=== PATIENT | male | born 1985 | race Caucasian/White ===

== ENCOUNTER → 2017-03-31 | Outpatient (CLI) | payer BC ==
[2017-03-31 07:13] LABS: ALT/SGPT 95 U/L (12-78); AST/SGOT 42 U/L (15-37)
== END ==
LOC: M LAB 06:21
PROVIDERS: ATTEND Internal Medicine Rheumatology
DX: R94.5 Abnormal results of liver function studies (principal)

== ENCOUNTER → 2017-09-29 | Outpatient (CLI) | payer BC ==
[2017-09-29 07:39] LABS: BASO # 0.1 10^3/uL (0.0-0.2); BASO % 1.2 % (0.0-1.0); EOS # 0.1 10^3/uL (0.0-0.50); IMMATURE GRANULOCYTE % 0.2 % (0-0); LYMPH # 1.6 10^3/uL (1.5-4.5); MEAN CORPUSCULAR HEMOGLOBIN 35.3 pg (27.0-33.0); MEAN CORPUSCULAR HGB CONC 35.4 g/dl (32.0-36.5); MEAN CORPUSCULAR VOLUME 99.8 fl (80.0-96.0); MONO # 0.8 10^3/uL (0.0-0.8); MONO % 15.9 % (0.0-5.0); NEUTROPHILS # 2.4 10^3/uL (1.8-7.7); NEUTROPHILS % 48.7 % (36.0-66.0); PLATELET COUNT, AUTOMATED 244 10^3/uL (150-450); RED CELL DISTRIBUTION WIDTH 11.1 % (11.5-14.5); WHITE BLOOD COUNT 4.9 10^3/uL (4.0-10.0)
[2017-09-29 07:57] LABS: ALT/SGPT 59 U/L (12-78); AST/SGOT 57 U/L (7-37)
== END ==
LOC: M LAB 06:46
PROVIDERS: ATTEND Physician Assistant Medical
DX: Z51.81 Encounter for therapeutic drug level monitoring (principal); Z79.899 Other long term (current) drug therapy; R94.5 Abnormal results of liver function studies

== ENCOUNTER → 2017-09-29 | Outpatient (CLI) | payer BC ==
[2017-09-29 08:08] LABS: ALBUMIN 3.8 GM/DL (3.2-5.2); ALBUMIN/GLOBULIN RATIO 1.36 (1.00-1.93); ALKALINE PHOSPHATASE 99 U/L (45-117); ALT/SGPT 60 U/L (12-78); ANION GAP 8 MEQ/L (8-16); AST/SGOT 57 U/L (7-37); BILIRUBIN,TOTAL 0.8 MG/DL (0.2-1.0); BLOOD UREA NITROGEN 15 MG/DL (7-18); CARBON DIOXIDE LEVEL 31 MEQ/L (21-32); CHLORIDE LEVEL 98 MEQ/L (98-107); CHOLESTEROL LEVEL 219 MG/DL (<200); CREATININE FOR GFR 0.87 MG/DL (0.70-1.30); GLOMERULAR FILTRATION RATE > 60.0 (>60); GLUCOSE, FASTING 94 MG/DL (70-105); POTASSIUM SERUM 3.8 MEQ/L (3.5-5.1); SODIUM LEVEL 137 MEQ/L (136-145); TOTAL PROTEIN 6.6 GM/DL (6.4-8.2); TRIGLYCERIDES LEVEL 152 MG/DL (<150)
== END ==
LOC: M LAB 06:47
PROVIDERS: ATTEND Family Medicine
DX: I10 Essential (primary) hypertension (principal)

== ENCOUNTER 2017-10-27 13:12 | Outpatient (CLI) | payer BC ==
[~2017-10-27 13:12] MED LIST: ALEV220C2 PO; ATEN50TA9 PO; INFL10VL IV
[2017-10-27] MEDS ORDERED: ACETAMINOPHEN TAB 650MG DOSE (2X325MG) PO ONE (13:30)
[2017-10-27] MEDS ORDERED: NS 1,000 ML IV SCH (14:00)
[2017-10-27] MEDS ORDERED: diphenhydrAMINE 25 MG CAP PO ONE (14:00)
[2017-10-27] MEDS ORDERED: inFLIXimab INJECTION 600 MG in NS 190 ML IV ONE (14:00)
== END 2017-10-27 16:30 | disposition home or self-care (01) ==
LOC: M INFU 13:12
PROVIDERS: ATTEND Internal Medicine
DX: L40.50 Arthropathic psoriasis, unspecified (principal); F17.210 Nicotine dependence, cigarettes, uncomplicated; Z91.040 Latex allergy status; Z79.899 Other long term (current) drug therapy
CPT/HCPCS: 96413; 96415; J1745

== ENCOUNTER 2017-11-21 09:00 | Inpatient (IN) | payer BC ==
[2017-11-21] MEDS: PANTOPRAZOLE 40MG INJ (PROTONIX) (C9113) IV (09:00)
[2017-11-21] MEDS: NS 1,000 ML IV ×2 (09:30→13:57)
[2017-11-21] MEDS: ONDANSETRON 4MG/2ML VIAL (J2405) IV (09:30)
[2017-11-21 10:04] LABS: BASO # 0.1 10^3/uL (0.0-0.2); BASO % 0.3 % (0.0-1.0); EOS % 0.1 % (0.0-3.0); HEMATOCRIT 46.1 % (42.0-52.0); IMMATURE GRANULOCYTE # 0.1 10^3/uL (0-0); IMMATURE GRANULOCYTE % 0.3 % (0-0); LYMPH # 0.7 10^3/uL (1.5-4.5); LYMPH % 5.1 % (24.0-44.0); MEAN CORPUSCULAR HEMOGLOBIN 35.1 pg (27.0-33.0); MEAN CORPUSCULAR VOLUME 95.1 fl (80.0-96.0); MONO # 1.2 10^3/uL (0.0-0.8); MONO % 8.1 % (0.0-5.0); NEUTROPHILS # 12.6 10^3/uL (1.8-7.7); NEUTROPHILS % 86.1 % (36.0-66.0); PLATELET COUNT, AUTOMATED 256 10^3/uL (150-450); RED BLOOD COUNT 4.85 10^6/uL (4.30-6.10); WHITE BLOOD COUNT 14.6 10^3/uL (4.0-10.0)
[2017-11-21 10:09] LABS: ADD MANUAL DIFFER NO; DIFF SLIDE NUMBER 160; MEAN CORPUSCULAR HGB CONC 36.9 g/dl (32.0-36.5)
[2017-11-21 10:18] LABS: ALBUMIN/GLOBULIN RATIO 1.18 (1.00-1.93); ALKALINE PHOSPHATASE 132 U/L (45-117); ALT/SGPT 74 U/L (12-78); AMYLASE 187 U/L (25-115); ANION GAP 10 MEQ/L (8-16); AST/SGOT 83 U/L (7-37); BILIRUBIN,DIRECT 0.6 MG/DL (0.0-0.2); BILIRUBIN,TOTAL 2.9 MG/DL (0.2-1.0); BLOOD UREA NITROGEN 27 MG/DL (7-18); CALCIUM LEVEL 8.9 MG/DL (8.5-10.1); CARBON DIOXIDE LEVEL 29 MEQ/L (21-32); CHLORIDE LEVEL 94 MEQ/L (98-107); CREATININE FOR GFR 0.94 MG/DL (0.70-1.30); GLOMERULAR FILTRATION RATE > 60.0 (>60); GLUCOSE, FASTING 127 MG/DL (70-105); LIPASE 1900 U/L (73-393); POTASSIUM SERUM 3.5 MEQ/L (3.5-5.1); SODIUM LEVEL 133 MEQ/L (136-145); TOTAL PROTEIN 7.4 GM/DL (6.4-8.2)
[2017-11-21 10:22] LABS: KETONE, URINE AUTO RFX NEGATIVE (NEGATIVE); LEUKOCYTE ESTERASE UR AUTO RFX NEGATIVE (NEGATIVE); MUCUS, URINE RFX SMALL (NEGATIVE); NITRITE, URINE AUTO RFX NEGATIVE (NEGATIVE); RBC, URINE AUTO RFX 1 /HPF (0-3); SPECIFIC GRAVITY UR AUTO RFX 1.029 (1.002-1.035); SQUAM EPITHELIAL CELL UR AURFX 0 /HPF (0-6); WBC, URINE AUTO RFX 1 /HPF (0-3)
[2017-11-21] MEDS ORDERED: ISOVUE-370 76% 100ML VIAL (Q9967) As Ordered (10:25)
[2017-11-21 13:05] LABS: INR 0.89; PROTHROMBIN TIME 12.1 SECONDS (12.4-14.5)
[2017-11-21 13:06] LABS: LDH LACTATE DEHYDROGENASE 203 U/L (87-241)
[2017-11-21 13:06] LABS: ETHYL ALCOHOL (ETHANOL) < 0.003 % (0.000-0.010)
[2017-11-21] MEDS ORDERED: ONDANSETRON 4MG/2ML VIAL (J2405) IV (13:30)
[2017-11-21] MEDS: MEROPENEM INJ 1 GM in APPROPRIATE DILUENT 1 EA IV ×2 (13:58→22:06)
[2017-11-21] MEDS ORDERED: MORPHINE 2 MG/ML 1ML SYRINGE IV (14:15)
[2017-11-21] MEDS: KCL 20MEQ in NS 1000ML 1,000 ML IV ×3 (16:02→23:00)
[2017-11-21] MEDS: NICOTINE 14 MG/24 HR TRANSDERMAL TD (18:42)
[2017-11-21 19:35] LABS: ANION GAP 5 MEQ/L (8-16); BLOOD UREA NITROGEN 23 MG/DL (7-18); CALCIUM LEVEL 7.9 MG/DL (8.5-10.1); CARBON DIOXIDE LEVEL 31 MEQ/L (21-32); CHLORIDE LEVEL 101 MEQ/L (98-107); CREATININE FOR GFR 0.79 MG/DL (0.70-1.30); GLOMERULAR FILTRATION RATE > 60.0 (>60); GLUCOSE, FASTING 98 MG/DL (70-105); MAGNESIUM LEVEL 1.9 MG/DL (1.8-2.4); POTASSIUM SERUM 3.3 MEQ/L (3.5-5.1); SODIUM LEVEL 137 MEQ/L (136-145)
[2017-11-21] MEDS: SENOKOT S TAB PO (22:04)
[2017-11-21] MEDS: HEPARIN SOD (PORCINE) 5000 UNITS/ML VIAL SQ (22:06)
[2017-11-21] MEDS: ATENOLOL 50 MG TAB PO (22:45)
[2017-11-21] MEDS: KETOROLAC 30 MG/ML VIAL (J1885) IV (22:45)
[2017-11-22] MEDS: KCL 20MEQ in NS 1000ML 1,000 ML IV ×3 (03:00→11:35)
[2017-11-22] MEDS: MEROPENEM INJ 1 GM in APPROPRIATE DILUENT 1 EA IV ×3 (06:04→21:36)
[2017-11-22 07:05] LABS: BASO % 0.6 % (0.0-1.0); EOS # 0.3 10^3/uL (0.0-0.50); EOS % 5.2 % (0.0-3.0); HEMATOCRIT 34.1 % (42.0-52.0); IMMATURE GRANULOCYTE % 0.4 % (0-0); LYMPH # 0.9 10^3/uL (1.5-4.5); LYMPH % 18.8 % (24.0-44.0); MEAN CORPUSCULAR HEMOGLOBIN 35.5 pg (27.0-33.0); MEAN CORPUSCULAR HGB CONC 35.2 g/dl (32.0-36.5); MEAN CORPUSCULAR VOLUME 100.9 fl (80.0-96.0); MONO # 0.5 10^3/uL (0.0-0.8); MONO % 10.9 % (0.0-5.0); NEUTROPHILS # 3.1 10^3/uL (1.8-7.7); NEUTROPHILS % 64.1 % (36.0-66.0); RED BLOOD COUNT 3.38 10^6/uL (4.30-6.10); RED CELL DISTRIBUTION WIDTH 11.5 % (11.5-14.5); WHITE BLOOD COUNT 4.8 10^3/uL (4.0-10.0)
[2017-11-22 07:11] LABS: PLATELET COUNT, AUTOMATED 147 10^3/uL (150-450)
[2017-11-22 07:31] LABS: ALBUMIN 2.6 GM/DL (3.2-5.2); ALKALINE PHOSPHATASE 93 U/L (45-117); ALT/SGPT 40 U/L (12-78); ANION GAP 8 MEQ/L (8-16); AST/SGOT 57 U/L (7-37); BLOOD UREA NITROGEN 25 MG/DL (7-18); CALCIUM LEVEL 7.8 MG/DL (8.5-10.1); CARBON DIOXIDE LEVEL 26 MEQ/L (21-32); CHLORIDE LEVEL 107 MEQ/L (98-107); CREATININE FOR GFR 0.72 MG/DL (0.70-1.30); GLOMERULAR FILTRATION RATE > 60.0 (>60); GLUCOSE, FASTING 79 MG/DL (70-105); LIPASE 2540 U/L (73-393); MAGNESIUM LEVEL 2.1 MG/DL (1.8-2.4); POTASSIUM SERUM 3.9 MEQ/L (3.5-5.1); SODIUM LEVEL 141 MEQ/L (136-145); TOTAL PROTEIN 5.5 GM/DL (6.4-8.2)
[2017-11-22] MEDS: SENOKOT S TAB PO ×2 (08:28→20:19)
[2017-11-22] MEDS: HEPARIN SOD (PORCINE) 5000 UNITS/ML VIAL SQ ×2 (08:28→20:48)
[2017-11-22] MEDS: PANTOPRAZOLE 40MG INJ (PROTONIX) (C9113) IV (08:28)
[2017-11-22 12:50] LABS: CHOLESTEROL LEVEL 172 MG/DL (<200); CHOLESTEROL RISK RATIO 3.583 (<5); HDL CHOLESTEROL 48 MG/DL (>40); LDL CHOLESTEROL 69.8 MG/DL (<100); NON-HDL-C 124 MG/DL; TRIGLYCERIDES LEVEL 271 MG/DL (<150)
[2017-11-22] MEDS: NICOTINE 14 MG/24 HR TRANSDERMAL TD (20:48)
[2017-11-22] MEDS: ATENOLOL 50 MG TAB PO (20:49)
[2017-11-23] MEDS: MEROPENEM INJ 1 GM in APPROPRIATE DILUENT 1 EA IV ×2 (05:41→14:25)
[2017-11-23 07:42] LABS: BASO % 0.6 % (0.0-1.0); EOS # 0.4 10^3/uL (0.0-0.50); HEMATOCRIT 38.4 % (42.0-52.0); HEMOGLOBIN 13.3 g/dl (14.0-18.0); IMMATURE GRANULOCYTE % 0.4 % (0-0); LYMPH # 1.1 10^3/uL (1.5-4.5); LYMPH % 19.9 % (24.0-44.0); MEAN CORPUSCULAR HEMOGLOBIN 34.9 pg (27.0-33.0); MEAN CORPUSCULAR HGB CONC 34.6 g/dl (32.0-36.5); MEAN CORPUSCULAR VOLUME 100.8 fl (80.0-96.0); MONO # 0.6 10^3/uL (0.0-0.8); MONO % 11.6 % (0.0-5.0); NEUTROPHILS # 3.3 10^3/uL (1.8-7.7); NEUTROPHILS % 60.5 % (36.0-66.0); PLATELET COUNT, AUTOMATED 156 10^3/uL (150-450); RED BLOOD COUNT 3.81 10^6/uL (4.30-6.10); RED CELL DISTRIBUTION WIDTH 11.1 % (11.5-14.5); WHITE BLOOD COUNT 5.4 10^3/uL (4.0-10.0)
[2017-11-23 08:06] LABS: ALBUMIN 2.8 GM/DL (3.2-5.2); ALBUMIN/GLOBULIN RATIO 0.88 (1.00-1.93); ALKALINE PHOSPHATASE 87 U/L (45-117); ALT/SGPT 38 U/L (12-78); ANION GAP 7 MEQ/L (8-16); AST/SGOT 52 U/L (7-37); BILIRUBIN,TOTAL 1.3 MG/DL (0.2-1.0); BLOOD UREA NITROGEN 12 MG/DL (7-18); CALCIUM LEVEL 8.7 MG/DL (8.5-10.1); CARBON DIOXIDE LEVEL 30 MEQ/L (21-32); CHLORIDE LEVEL 102 MEQ/L (98-107); CREATININE FOR GFR 0.61 MG/DL (0.70-1.30); GLOMERULAR FILTRATION RATE > 60.0 (>60); GLUCOSE, FASTING 101 MG/DL (70-105); LIPASE 3129 U/L (73-393); MAGNESIUM LEVEL 2.3 MG/DL (1.8-2.4); POTASSIUM SERUM 3.6 MEQ/L (3.5-5.1); SODIUM LEVEL 139 MEQ/L (136-145)
[2017-11-23] MEDS: HEPARIN SOD (PORCINE) 5000 UNITS/ML VIAL SQ ×2 (08:47→21:00)
[2017-11-23] MEDS: SENOKOT S TAB PO ×3 (08:47→21:01)
[2017-11-23] MEDS: PANTOPRAZOLE 40MG INJ (PROTONIX) (C9113) IV (08:47)
[2017-11-23] MEDS: CIPROFLOXACIN 500 MG TAB PO (17:34)
[2017-11-23] MEDS: NICOTINE 14 MG/24 HR TRANSDERMAL TD (21:01)
[2017-11-23] MEDS: metroNIDAZOLE (FLAGYL) 500 MG TAB PO (21:01)
[2017-11-23] MEDS: ATENOLOL 50 MG TAB PO (21:01)
[2017-11-24] MEDS: CIPROFLOXACIN 500 MG TAB PO (05:51)
[2017-11-24] MEDS: metroNIDAZOLE (FLAGYL) 500 MG TAB PO (05:51)
[2017-11-24 06:48] LABS: BASO % 0.9 % (0.0-1.0); EOS # 0.3 10^3/uL (0.0-0.50); EOS % 6.9 % (0.0-3.0); HEMOGLOBIN 13.1 g/dl (14.0-18.0); IMMATURE GRANULOCYTE % 0.2 % (0-0); LYMPH % 20.8 % (24.0-44.0); MEAN CORPUSCULAR HEMOGLOBIN 34.8 pg (27.0-33.0); MEAN CORPUSCULAR HGB CONC 35.4 g/dl (32.0-36.5); MEAN CORPUSCULAR VOLUME 98.4 fl (80.0-96.0); MONO # 0.6 10^3/uL (0.0-0.8); MONO % 12.4 % (0.0-5.0); NEUTROPHILS # 2.8 10^3/uL (1.8-7.7); NEUTROPHILS % 58.8 % (36.0-66.0); PLATELET COUNT, AUTOMATED 199 10^3/uL (150-450); RED BLOOD COUNT 3.76 10^6/uL (4.30-6.10); RED CELL DISTRIBUTION WIDTH 10.8 % (11.5-14.5); WHITE BLOOD COUNT 4.7 10^3/uL (4.0-10.0)
[2017-11-24 07:06] LABS: ALBUMIN 2.7 GM/DL (3.2-5.2); ALBUMIN/GLOBULIN RATIO 0.77 (1.00-1.93); ALKALINE PHOSPHATASE 87 U/L (45-117); ALT/SGPT 45 U/L (12-78); ANION GAP 5 MEQ/L (8-16); AST/SGOT 68 U/L (7-37); BILIRUBIN,TOTAL 0.4 MG/DL (0.2-1.0); BLOOD UREA NITROGEN 7 MG/DL (7-18); CALCIUM LEVEL 8.4 MG/DL (8.5-10.1); CARBON DIOXIDE LEVEL 32 MEQ/L (21-32); CHLORIDE LEVEL 101 MEQ/L (98-107); CREATININE FOR GFR 0.56 MG/DL (0.70-1.30); GLOMERULAR FILTRATION RATE > 60.0 (>60); GLUCOSE, FASTING 112 MG/DL (70-105); LIPASE 2963 U/L (73-393); MAGNESIUM LEVEL 2.2 MG/DL (1.8-2.4); POTASSIUM SERUM 3.5 MEQ/L (3.5-5.1); SODIUM LEVEL 138 MEQ/L (136-145); TOTAL PROTEIN 6.2 GM/DL (6.4-8.2)
[2017-11-24] MEDS: SENOKOT S TAB PO (09:00)
[2017-11-24] MEDS: HEPARIN SOD (PORCINE) 5000 UNITS/ML VIAL SQ (09:00)
[2017-11-24] MEDS: PANTOPRAZOLE 40MG INJ (PROTONIX) (C9113) IV (09:07)
== END 2017-11-24 11:45 | disposition home or self-care (01) | DRG 282 ==
LOC: M MS4PR 11-22 11:30 → M ED 09:00 → M ED INP 14:09
DX: K85.90 Acute pancreatitis without necrosis or infection, unspecified (principal); L40.50 Arthropathic psoriasis, unspecified; I10 Essential (primary) hypertension; A09 Infectious gastroenteritis and colitis, unspecified; F17.210 Nicotine dependence, cigarettes, uncomplicated; Z91.040 Latex allergy status; Z79.899 Other long term (current) drug therapy

== ENCOUNTER → 2018-01-05 | Outpatient (CLI) | payer BC ==
[2018-01-05 07:34] LABS: ALBUMIN 4.2 GM/DL (3.2-5.2); ALBUMIN/GLOBULIN RATIO 1.45 (1.00-1.93); ALKALINE PHOSPHATASE 83 U/L (45-117); ALT/SGPT 28 U/L (12-78); AST/SGOT 28 U/L (7-37); BILIRUBIN,DIRECT 0.2 MG/DL (0.0-0.2); BILIRUBIN,TOTAL 0.7 MG/DL (0.2-1.0); TOTAL PROTEIN 7.1 GM/DL (6.4-8.2); TRIGLYCERIDES LEVEL 167 MG/DL (<150)
[2018-01-09 00:06] LABS: ANTINUCLEAR ANTIBODIES DIRECT Negative (Negative); IgG SUBCLASS 4(ONLY) 25 mg/dL (2-96)
== END ==
LOC: M LAB 06:07
DX: R93.3 Abnormal findings on diagnostic imaging of other parts of digestive tract (principal); K85.90 Acute pancreatitis without necrosis or infection, unspecified
CPT/HCPCS: 84478

== ENCOUNTER → 2018-01-20 | Outpatient (CLI) | payer BC ==
[2018-01-20 14:14] LABS: BASO % 0.3 % (0.0-1.0); EOS % 0.1 % (0.0-3.0); HEMATOCRIT 34.8 % (42.0-52.0); HEMOGLOBIN 12.5 g/dl (14.0-18.0); IMMATURE GRANULOCYTE % 0.5 % (0-3.0); LYMPH # 0.6 10^3/uL (1.5-4.5); LYMPH % 8.6 % (24.0-44.0); MEAN CORPUSCULAR HEMOGLOBIN 33.1 pg (27.0-33.0); MEAN CORPUSCULAR HGB CONC 35.9 g/dl (32.0-36.5); MEAN CORPUSCULAR VOLUME 92.1 fl (80.0-96.0); MONO # 1.1 10^3/uL (0.0-0.8); MONO % 15.1 % (0.0-5.0); NEUTROPHILS # 5.5 10^3/uL (1.8-7.7); NEUTROPHILS % 75.4 % (36.0-66.0); PLATELET COUNT, AUTOMATED 215 10^3/uL (150-450); RED BLOOD COUNT 3.78 10^6/uL (4.30-6.10); RED CELL DISTRIBUTION WIDTH 10.6 % (11.5-14.5); WHITE BLOOD COUNT 7.3 10^3/uL (4.0-10.0)
[2018-01-20 14:30] LABS: ALBUMIN 3.3 GM/DL (3.2-5.2); ALBUMIN/GLOBULIN RATIO 0.87 (1.00-1.93); ALKALINE PHOSPHATASE 85 U/L (45-117); ALT/SGPT 26 U/L (12-78); ANION GAP 12 MEQ/L (8-16); AST/SGOT 38 U/L (7-37); BILIRUBIN,TOTAL 1.1 MG/DL (0.2-1.0); BLOOD UREA NITROGEN 16 MG/DL (7-18); CALCIUM LEVEL 8.7 MG/DL (8.5-10.1); CARBON DIOXIDE LEVEL 30 MEQ/L (21-32); CHLORIDE LEVEL 86 MEQ/L (98-107); CREATININE FOR GFR 0.97 MG/DL (0.70-1.30); GLOMERULAR FILTRATION RATE > 60.0 (>60); GLUCOSE, FASTING 99 MG/DL (70-100); POTASSIUM SERUM 3.2 MEQ/L (3.5-5.1); SODIUM LEVEL 128 MEQ/L (136-145); TOTAL PROTEIN 7.1 GM/DL (6.4-8.2)
== END ==
LOC: M WUC 10:12
DX: R50.9 Fever, unspecified (principal); R05 Cough
CPT/HCPCS: 80053

== ENCOUNTER 2018-01-23 11:21 | Emergency (ER) | payer BC ==
[2018-01-23 14:18] LABS: KETONE, URINE AUTO RFX TRACE mg/dL (NEGATIVE); MUCUS, URINE RFX SMALL (NEGATIVE); NITRITE, URINE AUTO RFX NEGATIVE (NEGATIVE); RBC, URINE AUTO RFX 4 /HPF (0-3); SPECIFIC GRAVITY UR AUTO RFX 1.035 (1.002-1.035); SQUAM EPITHELIAL CELL UR AURFX 0 /HPF (0-6)
[2018-01-23 14:19] LABS: LEUKOCYTE ESTERASE UR AUTO RFX TRACE (NEGATIVE); WBC, URINE AUTO RFX 18 /HPF (0-3)
[2018-01-23 14:22] LABS: BASO % 0.3 % (0.0-1.0); EOS # 0.1 10^3/uL (0.0-0.50); EOS % 1.5 % (0.0-3.0); HEMATOCRIT 36.2 % (42.0-52.0); IMMATURE GRANULOCYTE % 0.5 % (0-3.0); LYMPH # 0.6 10^3/uL (1.5-4.5); MEAN CORPUSCULAR HEMOGLOBIN 33.2 pg (27.0-33.0); MEAN CORPUSCULAR HGB CONC 35.9 g/dl (32.0-36.5); MEAN CORPUSCULAR VOLUME 92.3 fl (80.0-96.0); MONO # 0.8 10^3/uL (0.0-0.8); MONO % 13.4 % (0.0-5.0); NEUTROPHILS # 4.4 10^3/uL (1.8-7.7); NEUTROPHILS % 74.3 % (36.0-66.0); PLATELET COUNT, AUTOMATED 246 10^3/uL (150-450); RED BLOOD COUNT 3.92 10^6/uL (4.30-6.10); RED CELL DISTRIBUTION WIDTH 10.7 % (11.5-14.5); WHITE BLOOD COUNT 5.9 10^3/uL (4.0-10.0)
[2018-01-23 14:41] LABS: ALBUMIN 3.1 GM/DL (3.2-5.2); ALBUMIN/GLOBULIN RATIO 0.74 (1.00-1.93); ALKALINE PHOSPHATASE 97 U/L (45-117); ALT/SGPT 43 U/L (12-78); ANION GAP 8 MEQ/L (8-16); AST/SGOT 45 U/L (7-37); BILIRUBIN,DIRECT 0.2 MG/DL (0.0-0.2); BILIRUBIN,TOTAL 0.5 MG/DL (0.2-1.0); BLOOD UREA NITROGEN 14 MG/DL (7-18); CALCIUM LEVEL 8.7 MG/DL (8.5-10.1); CARBON DIOXIDE LEVEL 36 MEQ/L (21-32); CHLORIDE LEVEL 88 MEQ/L (98-107); CREATININE FOR GFR 0.66 MG/DL (0.70-1.30); GLOMERULAR FILTRATION RATE > 60.0 (>60); GLUCOSE, FASTING 111 MG/DL (70-100); POTASSIUM SERUM 3.3 MEQ/L (3.5-5.1); SODIUM LEVEL 132 MEQ/L (136-145); TOTAL PROTEIN 7.3 GM/DL (6.4-8.2)
[2018-01-23 14:52] LABS: INFLUENZA A AMPLIFICATION NEGATIVE (NEGATIVE); INFLUENZA B AMPLIFICATION NEGATIVE (NEGATIVE)
== END 2018-01-23 15:17 | disposition home or self-care (01) ==
LOC: M ED 11:21
DX: B34.9 Viral infection, unspecified (principal); E83.51 Hypocalcemia; E87.6 Hypokalemia; L40.50 Arthropathic psoriasis, unspecified; F17.200 Nicotine dependence, unspecified, uncomplicated; Z91.040 Latex allergy status; Z79.899 Other long term (current) drug therapy; Z79.2 Long term (current) use of antibiotics
CPT/HCPCS: 80076

== ENCOUNTER 2021-11-15 08:40 | Outpatient (CLI) | payer BC ==
[~2021-11-15] VITALS: Ht 185.4 cm; Wt 72.6 kg
[~2021-11-15 08:40] MED LIST changes: +ALBUTEROL 90 MCG/ACT 8GM HFA INHALER INH PRN; +ALBUTEROL SULFATE 2.5 MG/0.5 ML INH NEB SOLN INH PRN; +ATEN50TA2 PO; +AUGM875T28 PO; +CIPR500T3 PO; +EPINEPHrine INJ 1 MG/ML 1ML AMP IM PRN; +FLAG500T PO; +HUMI40KI SC; +NS 1,000 ML IV SCH; +TYLE325T5 PO; +ZOFR4TAB14 PO; +diphenhydrAMINE 50MG/ML VIAL (J1200) IV PRN; +methylPREDNISolone 125MG 2ML VIAL IV PRN
[2021-11-15 08:59] VITALS: BP 135/91
[2021-11-15] MEDS ORDERED: CASIRIVIMAB/IMDEVIMAB 1,200 MG in NS 250 ML IV ONE (09:00)
[2021-11-15 09:29] VITALS: BP 133/92
[2021-11-15 09:59] VITALS: BP 144/85
[2021-11-15 10:59] VITALS: BP 125/85
== END 2021-11-15 10:59 | disposition home or self-care (01) ==
LOC: M OPCLI4PR 08:40
PROVIDERS: ATTEND Physician Assistant
DX: U07.1 COVID-19 (principal)

== ENCOUNTER 2021-11-17 06:55 | Inpatient (IN) | payer BC ==
[~2021-11-17] VITALS: Ht 185.4 cm; Wt 68.5 kg
[~2021-11-17 06:55] MED LIST changes: -ALBUTEROL 90 MCG/ACT 8GM HFA INHALER INH PRN; -ALBUTEROL SULFATE 2.5 MG/0.5 ML INH NEB SOLN INH PRN; -EPINEPHrine INJ 1 MG/ML 1ML AMP IM PRN; -NS 1,000 ML IV SCH; -diphenhydrAMINE 50MG/ML VIAL (J1200) IV PRN; -methylPREDNISolone 125MG 2ML VIAL IV PRN
[2021-11-17] MEDS ORDERED: KETOROLAC 30 MG/ML 1ML VIAL IV ONE (07:35)
[2021-11-17] MEDS ORDERED: ONDANSETRON 4MG/2ML VIAL IV ONE (07:35)
[2021-11-17] MEDS ORDERED: NS 1,000 ML IV ONE (07:35)
[2021-11-17] MEDS ORDERED: PANTOPRAZOLE 40MG VIAL (C9113 PER 1) IV ONE (07:35)
[2021-11-17 08:29] LABS: BASO % 0.1 % (0.0-1.0); EOS % 0.1 % (0.0-3.0); HEMOGLOBIN 16.5 g/dl (13.5-17.5); LYMPH # 0.9 10^3/uL (1.5-5.0); LYMPH % 9.1 % (24.0-44.0); MEAN CORPUSCULAR HEMOGLOBIN 33.5 pg (27.0-33.0); MEAN CORPUSCULAR VOLUME 91.3 fl (80.0-96.0); MONO # 0.7 10^3/uL (0.0-0.8); MONO % 7.8 % (2.0-8.0); NEUTROPHILS # 7.7 10^3/uL (1.5-8.5); NEUTROPHILS % 82.6 % (36.0-66.0); PLATELET COUNT, AUTOMATED 191 10^3/uL (150-450); RED BLOOD COUNT 4.93 10^6/uL (4.30-6.10); WHITE BLOOD COUNT 9.3 10^3/uL (4.0-10.0)
[2021-11-17 08:39] LABS: INR 0.93; PROTHROMBIN TIME 12.9 SECONDS (12.7-14.5)
[2021-11-17 08:40] LABS: PARTIAL THROMBOPLASTIN TIME 39.4 SECONDS (25.9-37.0)
--- NOTE | 2021-11-17 08:50 | REP ---
INDICATION: hx colitis/LQ pain/Covid+. COMPARISON: 11/21/2017 TECHNIQUE: Axial contrast-enhanced images from the lung bases to the pubic symphysis using 100 cc Isovue 370 intravenous contrast material. Coronal and sagittal reformations obtained. This CT examination was performed using the following dose reduction techniques: Automated exposure control, adjustment of mA and/or kv according to the patient's size, and the use of iterative reconstruction technique. FINDINGS: Peripancreatic inflammatory stranding and small amount of fluid is appreciated along with a dilated pancreatic duct and multiple calcifications in the head/uncinate process suggesting chronic pancreatitis as well as raising the possibility of obstructing calculus in the pancreatic duct approaching the ampulla (series 201; images 53-56). There is no drainable fluid collection/pseudocyst. The gallbladder is grossly normal in appearance although there is suggestion for mild intrahepatic biliary dilatation involving the left hepatic lobe. Liver, spleen, bilateral adrenal glands and kidneys are essentially normal. The enteric system including stomach, small, and large bowel appears normal. No evidence for obstruction or acute inflammatory process. Normal terminal ileum and appendix are identified in the right lower quadrant. Pelvis demonstrates normal bladder and age-appropriate prostate/seminal vesicles. Small amount of free fluid from the above-mentioned pancreatitis extends into the pelvis. No free air. No intraperitoneal or retroperitoneal adenopathy. Abdominal aorta and vasculature appear normal. Musculoskeletal structures are intact and without acute osseous abnormality. IMPRESSION: 1. Findings consistent with acute pancreatitis with possibly obstructing stone in the distal pancreatic duct/ampulla. Multiple pancreatic calcifications consistent with prior/chronic pancreatitis. No associated drainable collection/abscess or pseudocyst identified. <Electronically signed by Gustavo Desir > 11/17/21 [id number]
[2021-11-17 08:58] LABS: ALBUMIN 4.2 GM/DL (3.2-5.2); ALT/SGPT 34 U/L (12-78); BILIRUBIN,DIRECT 0.2 MG/DL (0.0-0.2); BILIRUBIN,TOTAL 0.9 MG/DL (0.2-1.0); BLOOD UREA NITROGEN 24 MG/DL (7-18); CALCIUM LEVEL 9.5 MG/DL (8.5-10.1); CARBON DIOXIDE LEVEL 24 MEQ/L (21-32); CHLORIDE LEVEL 100 MEQ/L (98-107); CREATININE FOR GFR 0.72 MG/DL (0.70-1.30); GLOMERULAR FILTRATION RATE > 60.0 (>60); GLUCOSE, FASTING 108 MG/DL (70-100); LIPASE 14484 U/L (73-393); POTASSIUM SERUM 3.6 MEQ/L (3.5-5.1); SODIUM LEVEL 136 MEQ/L (136-145); TOTAL PROTEIN 7.4 GM/DL (6.4-8.2)
[2021-11-17 09:02] LABS: MAGNESIUM LEVEL 2.1 MG/DL (1.8-2.4)
[2021-11-17] MEDS ORDERED: MORPHINE 4 MG/ML 1ML VIAL/SYRINGE (J2270) IV ONE ×3 (09:10→23:40)
[2021-11-17] MEDS ORDERED: LR 1,000 ML IV ONE (09:10)
[2021-11-17 09:15] LABS: MEAN CORPUSCULAR HGB CONC 36.7 g/dl (32.0-36.5)
[2021-11-17 11:28] LABS: ALBUMIN 3.6 GM/DL (3.2-5.2); BILIRUBIN,DIRECT 0.2 MG/DL (0.0-0.2); BILIRUBIN,TOTAL 0.6 MG/DL (0.2-1.0); TOTAL PROTEIN 6.2 GM/DL (6.4-8.2)
[2021-11-17] MEDS ORDERED: NS 1,000 ML IV SCH (11:45)
--- NOTE | 2021-11-18 00:13 | REPVR ---
PROCEDURE INFORMATION: Exam: MR Abdomen Without Contrast Exam date and time: 11/17/2021 11:29 PM Age: 36 years old Clinical indication: Abdominal tenderness and nausea and vomiting; Abdominal pain; Generalized; Patient HX: PT is covid positive started after covid fusion; Additional info: Pancreatitis possible stone distal pancreatic ampulla TECHNIQUE: Imaging protocol: MR of the abdomen without contrast. COMPARISON: CT ABD/PEL W/IV CONTRAST ONLY 11/17/2021 8:27 AM FINDINGS: Liver: No mass. Gallbladder and bile ducts: Unremarkable. No stones. No ductal dilation. Pancreas: Mild peripancreatic. The main pancreatic duct is dilated measuring up to 9 mm in diameter. Several side branches of the main pancreatic duct are also mildly dilated. No obstructing intraluminal mass is seen. No solid pancreatic mass or abscess. Spleen: Unremarkable. No splenomegaly. Adrenal glands: Unremarkable. No mass. Kidneys and ureters: Unremarkable. No solid mass. No hydronephrosis. Stomach and bowel: Visualized stomach and intestines are unremarkable. Intraperitoneal space: Mild ascites in the upper abdomen. Arteries: No abdominal aortic aneurysm. Bones/joints: Unremarkable. Soft tissues: Mild edema and inflammatory changes in the mesentery. IMPRESSION: Acute pancreatitis. Dilated main pancreatic duct. No obstructing ductal calculus or mass is seen. No peripancreatic abscess. Electronically signed by: Elgin Do On 11/18/2021 00:13:14 AM
[2021-11-18] MEDS ORDERED: CIMZKIT SC (00:24)
[2021-11-18] MEDS ORDERED: HOME MED LIST COMPLETE! XX SCH (00:25)
[2021-11-18] MEDS: NS 1,000 ML IV SCH ×4 (02:35→22:35)
[2021-11-18] MEDS ORDERED: MORPHINE 4 MG/ML 1ML VIAL/SYRINGE (J2270) IV PRN (02:35)
[2021-11-18] MEDS ORDERED: ACETAMINOPHEN TAB 650MG DOSE (2X325MG) PO PRN (02:35)
[2021-11-18] MEDS ORDERED: ONDANSETRON 4MG/2ML VIAL IV PRN (02:35)
--- NOTE | 2021-11-18 02:57 | HPEPDOC ---
[facility] Medical History & Physical Date of Admission Nov 17, 2021 Date of Service: Nov 18, 2021 Attending Physician: KELVIN MALIN MD History and Physical CHIEF COMPLAINT: Abdominal pain HISTORY OF PRESENT ILLNESS: Xu is a 36-year-old male who presented to the ED today, 11/17/2021 with abdominal pain. States the pain began yesterday very intense to the point where it became a 10 out of 10 in quality. He is not able to keep any food or water down as well. The pain continued into today and he decided to come to the ED for treatment. Of note, Xu is also Covid positive. States that last , he experienced loss of taste and smell as well as congestion. He then went to an urgent care to get tested. By [place] he was experiencing body aches, productive cough, and a headache which became a migraine by the next day. He was able to qualify for monoclonal antibody treatment which he received Monday. PAST MEDICAL HISTORY: 1. Psoriasis. 2. Hypertension -currently unmedicated. 3. Pancreatitis 4. Colitis 5. Psoriatic arthritis PAST SURGICAL HISTORY: 1. None SOCIAL HISTORY: Marital status: . 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 REVIEW OF SYSTEMS: CONSTITUTIONAL: Reports chills; denies fevers. HEENT: Denies blurry vision. CARDIOVASCULAR: Reports chest pain (further questioning he specifically said the pain is in his lower rib cage). RESPIRATORY: Denies shortness of breath. GASTROINTESTINAL: Reports nausea, vomiting; denies diarrhea GENITOURINARY: Denies dysuria, hematuria. SKIN: History of psoriasis but getting better with the medication. MUSCULOSKELETAL: Reports muscle aches and joint pain related to Covid (none since Monday). NEUROLOGICAL: Reports headache (on Monday). ENDOCRINE: Reports increased thirst. HOME MEDICATIONS: Please see below. PHYSICAL EXAMINATION: VITAL SIGNS: Temperature 97.6, pulse 88, respiratory rate 16, blood pressure 147/103, pulse oximetry 99% on room air. GENERAL APPEARANCE: 36-year-old, male, lying in bed in ED room 5, no acute distress. HEENT: Head normocephalic atraumatic. CARDIOVASCULAR: Regular rate and rhythm, no murmurs, rubs, or gallops. LUNGS: Clear to auscultation bilaterally no wheezes, no crackles, rhonchi. ABDOMEN: Normoactive bowel sounds, tender to palpation in the upper left quadrant. EXTREMITIES: Psoriasis noted around his knees extremities, and elbows. NEUROLOGICAL: No focal deficits appreciated. PSYCHIATRIC: Alert and oriented x4. LABORATORY DATA: See below. IMAGING: CT abdomen pelvis with IV contrast only 11/17/2021 Liver: No mass. Gallbladder and bile ducts: Unremarkable. No stones. No ductal dilation. Pancreas: Mild peripancreatic. The main pancreatic duct is dilated measuring up to 9 mm in diameter. Several side branches of the main pancreatic duct are also mildly dilated. No obstructing intraluminal mass is seen. No solid pancreatic mass or abscess. Spleen: Unremarkable. No splenomegaly. Adrenal glands: Unremarkable. No mass. Kidneys and ureters: Unremarkable. No solid mass. No hydronephrosis. Stomach and bowel: Visualized stomach and intestines are unremarkable. Intraperitoneal space: Mild ascites in the upper abdomen. Arteries: No abdominal aortic aneurysm. Bones/joints: Unremarkable. Soft tissues: Mild edema and inflammatory changes in the mesentery. Abdomen pelvis CT 11/17/2021 1. Findings consistent with acute pancreatitis with possibly obstructing stone in the distal pancreatic duct/ampulla. Multiple pancreatic calcifications consistent with prior/chronic pancreatitis. No associated drainable collection/abscess or pseudocyst identified. MICROBIOLOGY: Please see below. ASSESSMENT: Xu is a 36-year-old male, who came into the ER 11/17/2020 2:21 day history of abdominal pain. Of note, he is also Covid positive and is status post monoclonal body fusion which he received Monday. PLAN: #. Pancreatitis -Lipase elevated at 14,484 -Begin normal saline 150 mL/h -Begin Zosyn every 6 hours -IV morphine 4 mg every 4 hours for severe pain -Zosyn 4 mg every 4 hours as needed for nausea -MiraLAX 17 mg daily to avoid opioid-induced constipation -Tylenol 650 mg every 6 hours for moderate pain -Clear liquid diet and advance as tolerated -GI consult #. COVID-19 pneumonia -Symptomatic management #. DVT prophylaxis. -Teds and sequentials CODE STATUS: Full code Vital Signs Vital Signs Date Time Temp Pulse Resp B/P (MAP) Pulse Ox O2 Delivery O2 Flow Rate FiO2 11/17/21 23:48 99.1 66 16 146/90 (108) 96 Room Air Laboratory Data Labs 24H Laboratory Tests 2 11/17/21 07:51: Immature Granulocyte % (Auto) 0.3, Neutrophils (%) (Auto) 82.6H, Lymphocytes (%) (Auto) 9.1L, Monocytes (%) (Auto) 7.8, Eosinophils (%) (Auto) 0.1, Basophils (%) (Auto) 0.1, Neutrophils # (Auto) 7.7, Lymphocytes # (Auto) 0.9L, Monocytes # (Auto) 0.7, Eosinophils # (Auto) 0.0, Basophils # (Auto) 0.0, Nucleated Red Blood Cells % (auto) 0.0, Prothrombin Time 12.9, Prothromb Time International Ratio 0.93, Activated Partial Thromboplast Time 39.4H, Fibrinogen 331, Anion Gap 12, Glomerular Filtration Rate > 60.0, Lactic Acid Level 1.3, Calcium Level 9.5, Magnesium Level 2.1, Ferritin 362, Total Bilirubin 0.9, Direct Bilirubin 0.2, Aspartate Amino Transf (AST/SGOT) 34, Alanine Aminotransferase (ALT/SGPT) 34, Alkaline Phosphatase 94, Total Protein 7.4, Albumin 4.2, Albumin/Globulin Ratio 1.3, Lipase 22154P 11/17/21 08:06: POC Glucose (Misc Panel) 118H, POC Sodium (Misc Panel) 136, POC Potassium (Misc Panel) 3.5, POC Chloride (Misc Panel) 99, POC Total CO2 (Misc Panel) 22.0L, POC Blood Urea Nitrogen (Misc Panel 25, POC Ionized Calcium (Misc Panel) 4.5, POC Creatinine (Misc Panel) 0.7, POC Hematocrit (Misc Panel) 46.0 11/17/21 10:52: Total Bilirubin 0.6, Direct Bilirubin 0.2, Aspartate Amino Transf (AST/SGOT) 27, Alanine Aminotransferase (ALT/SGPT) 29, Alkaline Phosphatase 78, Total Protein 6.2L, Albumin 3.6, Albumin/Globulin Ratio 1.4 CBC/BMP Laboratory Tests 11/17/21 07:51 Microbiology Microbiology 11/17/21 Blood Culture, Received Pending 11/17/21 Blood Culture, Received Pending Home Medications Scheduled Certolizumab Pegol (Cimzia) 400 Mg/2 Ml Syringekit, 800 MG SC Q2WK Allergies Coded Allergies: latex (Verified Allergy, Unknown, 11/17/21) GME ATTESTATION GME ATTESTATION My faculty preceptor for this patient encounter was physically present during the encounter and was fully available. All aspects of the patient interview, examination, medical decision making process, and medical care plan development were reviewed and approved by the faculty preceptor. The faculty preceptor is aware and concurs with the plan as stated in the body of this note and will attest to such by his/her cosignature. ATTENDING NOTE Patient seen and examined, agreed with the residents assessment and plan and w ill continue current management and sign of patient to the morning team in Eduardo Huffman DO Nov 18, 2021 02:57 KELVIN MALIN MD Nov 18, 2021 22:24
[2021-11-18 04:00] VITALS: BP 124/92
[2021-11-18] MEDS ORDERED: PIPERACILLIN/TAZOBACTAM SOD 3.375 GM in D5W MINI-BAG PLUS 50 ML IV SCH (04:00)
[2021-11-18 06:47] LABS: BASO % 0.1 % (0.0-1.0); EOS % 0.3 % (0.0-3.0); HEMATOCRIT 39.2 % (42.0-52.0); LYMPH # 0.9 10^3/uL (1.5-5.0); LYMPH % 11.6 % (24.0-44.0); MEAN CORPUSCULAR HEMOGLOBIN 33.9 pg (27.0-33.0); MEAN CORPUSCULAR HGB CONC 35.5 g/dl (32.0-36.5); MEAN CORPUSCULAR VOLUME 95.6 fl (80.0-96.0); MONO # 0.8 10^3/uL (0.0-0.8); MONO % 9.8 % (2.0-8.0); NEUTROPHILS # 6.2 10^3/uL (1.5-8.5); NEUTROPHILS % 77.8 % (36.0-66.0); PLATELET COUNT, AUTOMATED 143 10^3/uL (150-450)
[2021-11-18 06:51] LABS: HEMOGLOBIN 13.9 g/dl (13.5-17.5)
[2021-11-18 07:16] LABS: BLOOD UREA NITROGEN 20 MG/DL (7-18); CALCIUM LEVEL 8.4 MG/DL (8.5-10.1); CARBON DIOXIDE LEVEL 27 MEQ/L (21-32); CHLORIDE LEVEL 105 MEQ/L (98-107); GLOMERULAR FILTRATION RATE > 60.0 (>60); GLUCOSE, FASTING 90 MG/DL (70-100); MAGNESIUM LEVEL 2.1 MG/DL (1.8-2.4); POTASSIUM SERUM 3.9 MEQ/L (3.5-5.1); SODIUM LEVEL 139 MEQ/L (136-145)
[2021-11-18 08:00] VITALS: BP 149/92; O2SAT 94
[2021-11-18 08:18] LABS: C REACTIVE PROTEIN QUANTITATIV 3.21 MG/DL (0.00-0.30); FERRITIN 326 NG/ML (26-388); LDH LACTATE DEHYDROGENASE 177 U/L (87-241); LIPASE 5806 U/L (73-393); NT-PRO BNP 96 PG/ML (<125)
[2021-11-18] MEDS: ASPIRIN 81MG ENTERIC TABLET PO SCH (08:42)
[2021-11-18] MEDS: ENOXAPARIN 40MG/0.4ML SYRINGE (J1650 PER 10MG) SC SCH (08:42)
[2021-11-18] MEDS ORDERED: MIRALAX *UNIT DOSE* 17GM PACKET PO SCH (09:00)
[2021-11-18 12:00] VITALS: O2SAT 93
[2021-11-18] MEDS ORDERED: PANTOPRAZOLE 40MG VIAL (C9113 PER 1) IV SCH (12:00)
[2021-11-18] MEDS ORDERED: SIMETHICONE 80MG CHEW TAB PO PRN (12:10)
[2021-11-18 12:40] VITALS: BP 135/91
--- NOTE | 2021-11-18 13:51 | IPNPDOC ---
Subjective Date Seen The patient was seen on 11/18/21. Subjective Chief Complaint/HPI Mr. Saini is a 36 year old male with psoriasis and recently found COVID positive who is here for abdominal pain and pancreatitis. He told me that on Monday he had monoclonal antibodies and then the day after he had abdominal pain. He said he had a few alcoholic drinks. Question if his pancreatitis was from the MABs vs alcohol vs a stone that rapidly passed (CT had suggested choledocholithiasis, but MRI negative). He tolerated a liquid breakfast without problem. Only issues was gas. He feels like trying a mechanical soft diet for this evening. Objective Physical Examination General Exam: Positive: Alert, Cooperative Eye Exam: Positive: EOMI; Negative: Sclera icteric ENT Exam: Positive: Atraumatic Neck Exam: Positive: Supple Chest Exam: Positive: Clear to auscultation Heart Exam: Positive: Rate Normal, Regular Rhythm Abdomen Exam: Positive: Normal bowel sounds; Negative: Soft (mildly firm), Tenderness Extremity Exam: Negative: Edema Neuro Exam: Positive: Normal Speech Psych Exam: Positive: Mental status NL, Mood NL Assessment /Plan Assessment Mr. Saini is a 36 year old male with psoriasis and recently found COVID positive who is here for abdominal pain and pancreatitis. CT had suggested a possible stone. Labs did not support choledocholithiasis. MRCP did not find a stone, but did find dilated duct. He may have had a rapidly passing stone. Other differential includes alcohol and question if it is a possible adverse reaction to monoclonal antibodies. Patient is rapidly improving and lipase has significancy improved. If patient can tolerate a solid diet tomorrow, he can go home tomorrow. Plan/VTE VTE Prophylaxis Ordered?: Yes Plan 1. Acute pancreatitis -Etiology unclear -Continue IVF -Lipase significantly improved -Patient tolerating a clear liquid diet -Added Protonix and simethicone to help with gas -If tolerating solid food, can go home tomorrow 2. COVID positive -Supportive care -Patient received MABs on Monday11/15/21 3. DVT ppx -Aspirin and Lovenox Disposition: If patient can tolerate solid foods by tomorrow, can go home tomorrow VS, I&O, 24H, Fishbone Vital Signs/I&O Vital Signs Date Time Temp Pulse Resp B/P (MAP) Pulse Ox O2 Delivery O2 Flow Rate FiO2 11/18/21 12:40 99.3 74 18 135/91 (106) 98 Room Air I&O- Last 24 Hours up to 6 AM 11/18/21 06:00 Intake Total 1800 ml Output Total 750 ml Balance 1050 ml Laboratory Data 24H LABS Laboratory Tests 2 11/18/21 06:30: Immature Granulocyte % (Auto) 0.4, Neutrophils (%) (Auto) 77.8H, Lymphocytes (%) (Auto) 11.6L, Monocytes (%) (Auto) 9.8H, Eosinophils (%) (Auto) 0.3, Basophils (%) (Auto) 0.1, Neutrophils # (Auto) 6.2, Lymphocytes # (Auto) 0.9L, Monocytes # (Auto) 0.8, Eosinophils # (Auto) 0.0, Basophils # (Auto) 0.0, Nucleated Red Blood Cells % (auto) 0.0, D-Dimer, Quantitative 3054.30H, Anion Gap 7L, Glomerular Filtration Rate > 60.0, Calcium Level 8.4L, Magnesium Level 2.1, Ferritin 326, Lactate Dehydrogenase 177, C-Reactive Protein, Quantitative 3.21H, [id number]-Mbk-M-Type Natriuretic Peptide 96, Lipase 5806H, Procalcitonin <0.05 CBC/BMP Laboratory Tests 11/18/21 06:30 Microbiology Microbiology 11/17/21 Blood Culture - Preliminary, Resulted No growth after 24 hours . All specim... 11/17/21 Blood Culture - Preliminary, Resulted No growth after 24 hours . All specim... PREMA RESENDIZ DO Nov 18, 2021 13:51
[2021-11-18 16:00] VITALS: BP 126/80; O2SAT 94
[2021-11-18 20:00] VITALS: BP 122/83; O2SAT 97
[2021-11-19] VITALS: BP 116/79; O2SAT 95
[2021-11-19] MEDS: NS 1,000 ML IV SCH (03:42)
[2021-11-19 04:00] VITALS: BP 139/88; O2SAT 99
[2021-11-19 07:08] LABS: BASO % 0.3 % (0.0-1.0); EOS # 0.1 10^3/uL (0.0-0.5); EOS % 1.9 % (0.0-3.0); HEMATOCRIT 33.9 % (42.0-52.0); LYMPH # 1.2 10^3/uL (1.5-5.0); LYMPH % 17.5 % (24.0-44.0); MEAN CORPUSCULAR HEMOGLOBIN 33.8 pg (27.0-33.0); MEAN CORPUSCULAR HGB CONC 35.1 g/dl (32.0-36.5); MEAN CORPUSCULAR VOLUME 96.3 fl (80.0-96.0); MONO % 13.8 % (2.0-8.0); NEUTROPHILS # 4.5 10^3/uL (1.5-8.5); NEUTROPHILS % 66.2 % (36.0-66.0); PLATELET COUNT, AUTOMATED 125 10^3/uL (150-450); RED BLOOD COUNT 3.52 10^6/uL (4.30-6.10); WHITE BLOOD COUNT 6.9 10^3/uL (4.0-10.0)
[2021-11-19 07:09] LABS: HEMOGLOBIN 11.9 g/dl (13.5-17.5)
[2021-11-19 07:26] LABS: BLOOD UREA NITROGEN 11 MG/DL (7-18); CALCIUM LEVEL 7.9 MG/DL (8.5-10.1); CARBON DIOXIDE LEVEL 28 MEQ/L (21-32); CHLORIDE LEVEL 105 MEQ/L (98-107); CREATININE FOR GFR 0.52 MG/DL (0.70-1.30); GLOMERULAR FILTRATION RATE > 60.0 (>60); GLUCOSE, FASTING 91 MG/DL (70-100); LIPASE 658 U/L (73-393); MAGNESIUM LEVEL 2.1 MG/DL (1.8-2.4); POTASSIUM SERUM 3.2 MEQ/L (3.5-5.1); SODIUM LEVEL 139 MEQ/L (136-145)
[2021-11-19 08:00] VITALS: BP 139/88; O2SAT 98
[2021-11-19] MEDS ORDERED: POTASSIUM CHLORIDE 10MEQ SR TABLET PO ONE (08:00)
--- NOTE | 2021-11-19 08:07 | ECGEPIP ---
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
[2021-11-19] MEDS: ENOXAPARIN 40MG/0.4ML SYRINGE (J1650 PER 10MG) SC SCH (08:09)
[2021-11-19] MEDS: ASPIRIN 81MG ENTERIC TABLET PO SCH (08:10)
--- NOTE | 2021-11-19 18:59 | DS.PDOC ---
Discharge Summary General Date of Admission Nov 18, 2021 at 02:50 Date of Discharge Nov 19, 2021 Discharge Summary PROCEDURES PERFORMED DURING STAY: None. ADMITTING DIAGNOSES: 1. Acute pancreatitis 2. Covid infection DISCHARGE DIAGNOSES: 1. Acute pancreatitis 2. Covid infection COMPLICATIONS/CHIEF COMPLAINT: Acute Pancreatitis. HISTORY OF PRESENT ILLNESS: Copied from admitting providers H&P " Xu is a 36-year-old male who presented to the ED today, 11/17/2021 with abdominal pain. States the pain began yesterday very intense to the point where it became a 10 out of 10 in quality. He is not able to keep any food or water down as well. The pain continued into today and he decided to come to the ED for treatment. Of note, Xu is also Covid positive. States that last , he experienced loss of taste and smell as well as congestion. He then went to an urgent care to get tested. By he was experiencing body aches, productive cough, and a headache which became a migraine by the next day. He was able to qualify for monoclonal antibody treatment which he received Monday. " HOSPITAL COURSE: Patient improved faster than expected. Unclear etiology to the pancreatitis. CT imaging had suggested a stone although was not seen on MRCP. Patient may have passed a stone. The strange thing was that his AST and ALT were never elevated. Other consideration would be alcohol versus an adverse reaction to the monoclonal antibodies. Patient's lipase rapidly improved. He tolerated clear liquid diet and was advanced to solids. Today he did well with a solid diet. He denies any nausea, but he has residual mild abdominal pain. Otherwise he was never hypoxic and did not need antibiotics. He feels ready for home and was subsequently discharged home today. DISCHARGE MEDICATIONS: Please see below. ALLERGIES: Please see below. PHYSICAL EXAMINATION ON DISCHARGE: VITAL SIGNS: Please see below. GENERAL: Comfortable, in no apparent distress. HEENT: EOMI, sclera clear. NECK: Supple. RESPIRATORY: Lungs clear to auscultation bilaterally, no rales, wheeze or rhonchi. CARDIOVASCULAR: Regular rate and rhythm. ABDOMEN: Soft, normal bowel sounds. MUSCLE SKELETAL: Muscle strength 5/5 in all extremities. NEUROLOGICAL: CN 312 grossly intact. PSYCHOLOGICAL: Normal mood and affect. LABORATORY DATA: Please see below. IMAGING: Radiologist interpretation CT abdomen pelvis with IV contrast only 1. Findings consistent with acute pancreatitis with possibly obstructing stone in the distal pancreatic duct/ampulla. Multiple pancreatic calcifications consistent with prior/chronic pancreatitis. No associated drainable collection/abscess or pseudocyst identified. MRCP Acute pancreatitis. Dilated main pancreatic duct. No obstructing ductal calculus or mass is seen. No peripancreatic abscess. PROGNOSIS: Good ACTIVITY: As tolerated. DIET: Regular diet although would recommend avoiding greasy foods for the next few days DISCHARGE PLAN: Patient to return home for expectant management DISPOSITION: 01 Home, Self-Care. DISCHARGE INSTRUCTIONS: 1. Follow-up with PCP in a week. DISCHARGE CONDITION: Stable. Total time spent on discharge planning, discharge summary, and medication reconciliation: 35 minutes Vital Signs/I&Os Vital Signs Date Time Temp Pulse Resp B/P (MAP) Pulse Ox O2 Delivery O2 Flow Rate FiO2 11/19/21 08:00 99.2 73 17 139/88 (105) 98 Room Air I&O- Last 24 Hours up to 6 AM 11/19/21 06:00 Intake Total 3610 ml Output Total 1850 ml Balance 1760 ml Laboratory Data Labs 24H Laboratory Tests 2 11/19/21 05:27: Immature Granulocyte % (Auto) 0.3, Neutrophils (%) (Auto) 66.2H, Lymphocytes (%) (Auto) 17.5L, Monocytes (%) (Auto) 13.8H, Eosinophils (%) (Auto) 1.9, Basophils (%) (Auto) 0.3, Neutrophils # (Auto) 4.5, Lymphocytes # (Auto) 1.2L, Monocytes # (Auto) 1.0H, Eosinophils # (Auto) 0.1, Basophils # (Auto) 0.0, Nucleated Red Blood Cells % (auto) 0.0, Anion Gap 6L, Glomerular Filtration Rate > 60.0, Calcium Level 7.9L, Magnesium Level 2.1, Lipase 658H CBC/BMP Laboratory Tests 11/19/21 05:27 Microbiology Microbiology 11/17/21 Blood Culture - Preliminary, Resulted No Growth after 48 hours. All Specime... 11/17/21 Blood Culture - Preliminary, Resulted No Growth after 48 hours. All Specime... Discharge Medications Scheduled Certolizumab Pegol (Cimzia) 400 Mg/2 Ml Syringekit, 800 MG SC Q2WK, (Reported) Allergies Coded Allergies: latex (Verified Allergy, Unknown, 11/17/21) PREMA RESENDIZ DO Nov 19, 2021 18:59
== END 2021-11-19 10:30 | disposition home or self-care (01) | DRG 282 ==
LOC: M ED 06:55 → M ED INP 11-18 02:50 → M 4MAIN 11-18 04:01
PROVIDERS: ADMIT Internal Medicine; ATTEND Internal Medicine
DX: K85.90 Acute pancreatitis without necrosis or infection, unspecified (principal); U07.1 COVID-19; L40.50 Arthropathic psoriasis, unspecified; I10 Essential (primary) hypertension; F17.210 Nicotine dependence, cigarettes, uncomplicated; F10.10 Alcohol abuse, uncomplicated; Z79.899 Other long term (current) drug therapy; Z91.040 Latex allergy status

== ENCOUNTER → 2022-11-04 | Outpatient (CLI) | payer BC ==
[~2022-11-04] MED LIST changes: +CIMZKIT SC
[2022-11-04 07:30] LABS: BASO # 0.1 10^3/uL (0.0-0.2); BASO % 0.7 % (0.0-1.0); EOS # 0.3 10^3/uL (0.0-0.5); EOS % 4.1 % (0.0-3.0); HEMATOCRIT 39.7 % (42.0-52.0); HEMOGLOBIN 13.5 g/dl (13.5-17.5); LYMPH # 1.4 10^3/uL (1.5-5.0); LYMPH % 20.1 % (24.0-44.0); MEAN CORPUSCULAR HEMOGLOBIN 33.5 pg (27.0-33.0); MEAN CORPUSCULAR VOLUME 98.5 fl (80.0-96.0); MONO % 9.4 % (2.0-8.0); NEUTROPHILS # 4.5 10^3/uL (1.5-8.5); NEUTROPHILS % 65.4 % (36.0-66.0); PLATELET COUNT, AUTOMATED 338 10^3/uL (150-450); RED BLOOD COUNT 4.03 10^6/uL (4.30-6.10); WHITE BLOOD COUNT 6.8 10^3/uL (4.0-10.0)
[2022-11-04 07:47] LABS: ALT/SGPT 13 U/L (7.0-40); AST/SGOT 20 U/L (<34); BLOOD UREA NITROGEN 17 MG/DL (9-23); CREATININE FOR GFR 0.74 MG/DL (0.70-1.30); GLOMERULAR FILTRATION RATE > 60.0 (>60)
[2022-11-04 08:12] LABS: ERYTHROCYTE SEDIMENTATION RATE 22 mm/hr (0-15)
== END ==
LOC: M LAB 06:36
PROVIDERS: ATTEND Nurse Practitioner
DX: L40.59 Other psoriatic arthropathy (principal); Z79.899 Other long term (current) drug therapy

== ENCOUNTER 2023-05-21 06:57 | Emergency (ER) | payer BC ==
[~2023-05-21] VITALS: Ht 185.4 cm; Wt 77.8 kg
[2023-05-21 07:43] LABS: BASO % 0.4 % (0.0-1.0); EOS # 0.3 10^3/uL (0.0-0.5); EOS % 2.3 % (0.0-3.0); HEMOGLOBIN 14.7 g/dl (13.5-17.5); LYMPH % 8.4 % (24.0-44.0); MEAN CORPUSCULAR HEMOGLOBIN 33.3 pg (27.0-33.0); MEAN CORPUSCULAR HGB CONC 34.2 g/dl (32.0-36.5); MEAN CORPUSCULAR VOLUME 97.5 fl (80.0-96.0); MONO # 0.9 10^3/uL (0.0-0.8); MONO % 8.2 % (2.0-8.0); NEUTROPHILS % 80.3 % (36.0-66.0); PLATELET COUNT, AUTOMATED 384 10^3/uL (150-450); RED BLOOD COUNT 4.41 10^6/uL (4.30-6.10); WHITE BLOOD COUNT 11.3 10^3/uL (4.0-10.0)
[2023-05-21 08:04] LABS: ALBUMIN 2.8 G/DL (3.2-5.2); ALKALINE PHOSPHATASE 80 U/L (46-116); ALT/SGPT 10 U/L (7.0-40); AST/SGOT 15 U/L (<34); BILIRUBIN,DIRECT 0.2 MG/DL (<0.4); BILIRUBIN,TOTAL 0.6 MG/DL (0.3-1.2); BLOOD UREA NITROGEN 10 MG/DL (9-23); CALCIUM LEVEL 8.9 MG/DL (8.5-10.1); CARBON DIOXIDE LEVEL 29 MMOL/L (20-31); CHLORIDE LEVEL 99 MMOL/L (98-107); CREATININE FOR GFR 0.73 MG/DL (0.70-1.30); GLOMERULAR FILTRATION RATE > 60.0 (>60); GLUCOSE, FASTING 118 MG/DL (60-100); POTASSIUM SERUM 4.5 MMOL/L (3.5-5.1); SODIUM LEVEL 133 MMOL/L (136-145); TOTAL PROTEIN 5.7 G/DL (5.7-8.2)
[2023-05-21 08:33] LABS: LIPASE 840 U/L (12-53)
[2023-05-21] MEDS ORDERED: ONDANSETRON 4MG 2ML VIAL IV ONE (08:40)
[2023-05-21] MEDS ORDERED: MORPHINE 4 MG/ML 1ML VIAL IV ONE ×3 (08:40→18:40)
[2023-05-21] MEDS ORDERED: ISOVUE-370 76% 100ML VIAL As Ordered ONE (09:15)
[2023-05-21] MEDS ORDERED: NICOTINE 14 MG/24 HR TRANSDERMAL TD ONE (10:30)
[2023-05-21] MEDS ORDERED: NS 1,000 ML IV SCH (11:25)
[2023-05-21 11:44] LABS: RSV AMPLIFICATION NEGATIVE (NEGATIVE)
[2023-05-21 18:15] VITALS: TEMP 97.8
[2023-05-21 19:00] VITALS: BP 131/87
[2023-05-21 19:13] VITALS: O2SAT 99
== END 2023-05-21 19:23 | disposition short-term general hospital (02) ==
LOC: M ED 06:57
DX: R18.8 Other ascites (principal); R93.2 Abnormal findings on diagnostic imaging of liver and biliary tract; K86.89 Other specified diseases of pancreas; I10 Essential (primary) hypertension; K57.92 Diverticulitis of intestine, part unspecified, without perforation or abscess without bleeding; Z87.19 Personal history of other diseases of the digestive system; F17.200 Nicotine dependence, unspecified, uncomplicated; Z79.899 Other long term (current) drug therapy; Z91.040 Latex allergy status
CPT/HCPCS: 74018; 74177; 80048; 80076; 81001; 83690; 85025; 87631; 96361; 96374; 96375; 96376; 99285; J2405; Q9967

== ENCOUNTER → 2023-06-22 | Outpatient (CLI) | payer BC ==
[~2023-06-22] MED LIST changes: +ELIQ5TAB PO; +FURO40TA2; +LASI20TA3 PO; +ONDA4TAB6 PO; +OXYC-517 PO; +OXYC7.5T3 PO; +REGL10TA6 PO
[2023-06-22 10:53] LABS: HEMATOCRIT 37.5 % (42.0-52.0); HEMOGLOBIN 12.7 g/dl (13.5-17.5); MEAN CORPUSCULAR HEMOGLOBIN 31.4 pg (27.0-33.0); MEAN CORPUSCULAR HGB CONC 33.9 g/dl (32.0-36.5); MEAN CORPUSCULAR VOLUME 92.8 fl (80.0-96.0); PLATELET COUNT, AUTOMATED 382 10^3/uL (150-450); RED BLOOD COUNT 4.04 10^6/uL (4.30-6.10); WHITE BLOOD COUNT 10.4 10^3/uL (4.0-10.0)
[2023-06-22 11:05] LABS: INR 1.13; PROTHROMBIN TIME 14.7 SECONDS (12.5-14.5)
[2023-06-22 11:20] LABS: LIPASE 51 U/L (12-53)
[2023-06-22 11:21] LABS: ALBUMIN 2.6 G/DL (3.2-5.2); ALKALINE PHOSPHATASE 126 U/L (46-116); ALT/SGPT 13 U/L (7.0-40); AST/SGOT < 8 U/L (<34); BILIRUBIN,TOTAL 0.5 MG/DL (0.3-1.2); BLOOD UREA NITROGEN 15 MG/DL (9-23); CALCIUM LEVEL 8.2 MG/DL (8.5-10.1); CARBON DIOXIDE LEVEL 25 MMOL/L (20-31); CHLORIDE LEVEL 103 MMOL/L (98-107); CREATININE FOR GFR 0.46 MG/DL (0.70-1.30); GLOMERULAR FILTRATION RATE > 60.0 (>60); GLUCOSE, FASTING 94 MG/DL (60-100); POTASSIUM SERUM 3.8 MMOL/L (3.5-5.1); SODIUM LEVEL 138 MMOL/L (136-145); TOTAL PROTEIN 6.1 G/DL (5.7-8.2)
[2023-06-22 11:29] VITALS: BP 117/78; TEMP 98.8; O2SAT 98
[2023-06-22 11:48] VITALS: BP 120/84; TEMP 98.5; O2SAT 98
[2023-06-22 11:58] VITALS: BP 121/86; TEMP 98; O2SAT 98
== END ==
LOC: M IRPRO 09:59
PROVIDERS: ATTEND Internal Medicine Gastroenterology
DX: R18.8 Other ascites (principal)
CPT/HCPCS: 49083; 80053; 82105; 83690; 85027; 85610; 96365; P9047

== ENCOUNTER 2023-06-23 06:38 | Emergency (ER) | payer BC ==
[~2023-06-23] VITALS: Ht 185.4 cm; Wt 62.9 kg
[~2023-06-23 06:38] MED LIST changes: -ONDA4TAB6 PO; -OXYC7.5T3 PO; -REGL10TA6 PO
[2023-06-23 08:16] LABS: BASO % 0.3 % (0.0-1.0); EOS # 0.1 10^3/uL (0.0-0.5); EOS % 0.6 % (0.0-3.0); HEMATOCRIT 37.9 % (42.0-52.0); LYMPH # 1.1 10^3/uL (1.5-5.0); LYMPH % 11.7 % (24.0-44.0); MEAN CORPUSCULAR HEMOGLOBIN 31.6 pg (27.0-33.0); MEAN CORPUSCULAR HGB CONC 34.3 g/dl (32.0-36.5); MONO # 0.9 10^3/uL (0.0-0.8); MONO % 9.5 % (2.0-8.0); NEUTROPHILS # 7.4 10^3/uL (1.5-8.5); NEUTROPHILS % 77.6 % (36.0-66.0); PLATELET COUNT, AUTOMATED 405 10^3/uL (150-450); RED BLOOD COUNT 4.12 10^6/uL (4.30-6.10); WHITE BLOOD COUNT 9.6 10^3/uL (4.0-10.0)
[2023-06-23 08:42] LABS: BILIRUBIN,DIRECT 0.2 MG/DL (<0.4); BILIRUBIN,TOTAL 0.7 MG/DL (0.3-1.2); TOTAL PROTEIN 6.9 G/DL (5.7-8.2)
[2023-06-23] MEDS: GASTROGRAFIN SOLUTION 30ML PO SCH ×2 (08:46→09:16)
[2023-06-23] MEDS ORDERED: MORPHINE 4 MG/ML 1ML VIAL IV ONE (08:55)
[2023-06-23] MEDS ORDERED: ONDANSETRON 4MG 2ML VIAL IV ONE (08:55)
[2023-06-23] MEDS ORDERED: NS 1,000 ML IV ONE (09:05)
[2023-06-23] MEDS ORDERED: ISOVUE-370 76% 100ML VIAL As Ordered ONE (10:05)
[2023-06-23] MEDS ORDERED: METOCLOPRAMIDE INJ 10MG/2ML VIAL IV ONE (10:55)
[2023-06-23] MEDS ORDERED: HYDROMORPHONE HCL 0.5 MG/ 0.5 ML SYRINGE IV PRN (10:55)
[2023-06-23] MEDS ORDERED: NS 500 ML IV ONE (11:30)
[2023-06-23] MEDS ORDERED: OXYC7.5T3 PO (12:20)
[2023-06-23] MEDS ORDERED: ONDA4TAB6 PO (12:20)
[2023-06-23] MEDS ORDERED: REGL10TA6 PO (12:20)
[2023-06-23 12:43] VITALS: BP 153/94; TEMP 99.2; O2SAT 100
== END 2023-06-23 12:42 | disposition home or self-care (01) ==
LOC: M ED 06:38
DX: K86.89 Other specified diseases of pancreas (principal); I74.8 Embolism and thrombosis of other arteries; I82.890 Acute embolism and thrombosis of other specified veins; R10.9 Unspecified abdominal pain; I10 Essential (primary) hypertension; K80.20 Calculus of gallbladder without cholecystitis without obstruction; K76.9 Liver disease, unspecified; F17.200 Nicotine dependence, unspecified, uncomplicated; F12.10 Cannabis abuse, uncomplicated; Z79.01 Long term (current) use of anticoagulants; Z79.899 Other long term (current) drug therapy; Z91.040 Latex allergy status
CPT/HCPCS: 74177; 80047; 80076; 81001; 83690; 85025; 96361; 96374; 96375; 99284; J1170; J2405; J2765; Q9963; Q9967

== ENCOUNTER → 2023-08-04 | Outpatient (REF) | payer BC ==
[~2023-08-04] MED LIST changes: +ONDA4TAB6 PO; +OXYC7.5T3 PO; +REGL10TA6 PO
== END ==
LOC: M LAB REF 08:29
PROVIDERS: ATTEND Surgery
DX: K86.81 Exocrine pancreatic insufficiency (principal)

== ENCOUNTER → 2023-10-11 | Outpatient (CLI) | payer BC ==
[~2023-10-11] MED LIST changes: +GASTROGRAFIN SOLUTION 30ML As Ordered ONE; +ISOVUE-370 76% 100ML VIAL As Ordered ONE
== END ==
LOC: M RAD 09:31
PROVIDERS: ATTEND Nurse Practitioner Family
DX: K86.1 Other chronic pancreatitis (principal); K86.89 Other specified diseases of pancreas; T50.905A Adverse effect of unspecified drugs, medicaments and biological substances, initial encounter
CPT/HCPCS: 74178; Q9963; Q9967

== ENCOUNTER 2023-10-25 07:39 | Emergency (ER) | payer BC ==
[~2023-10-25] VITALS: Ht 182.9 cm; Wt 74.1 kg
[~2023-10-25 07:39] MED LIST changes: -GASTROGRAFIN SOLUTION 30ML As Ordered ONE; -ISOVUE-370 76% 100ML VIAL As Ordered ONE
[2023-10-25 08:45] LABS: BASO % 0.2 % (0.0-1.0); EOS # 0.1 10^3/uL (0.0-0.5); HEMATOCRIT 44.4 % (42.0-52.0); LYMPH # 1.4 10^3/uL (1.5-5.0); LYMPH % 14.3 % (24.0-44.0); MEAN CORPUSCULAR HEMOGLOBIN 31.8 pg (27.0-33.0); MEAN CORPUSCULAR HGB CONC 33.8 g/dl (32.0-36.5); MEAN CORPUSCULAR VOLUME 94.3 fl (80.0-96.0); MONO # 0.7 10^3/uL (0.0-0.8); MONO % 7.4 % (2.0-8.0); NEUTROPHILS # 7.6 10^3/uL (1.5-8.5); NEUTROPHILS % 76.4 % (36.0-66.0); PLATELET COUNT, AUTOMATED 216 10^3/uL (150-450); RED BLOOD COUNT 4.71 10^6/uL (4.30-6.10); WHITE BLOOD COUNT 9.9 10^3/uL (4.0-10.0)
[2023-10-25 09:16] LABS: BLOOD UREA NITROGEN 14 MG/DL (9-23); CALCIUM LEVEL 9.2 MG/DL (8.5-10.1); CARBON DIOXIDE LEVEL 26 MMOL/L (20-31); CHLORIDE LEVEL 107 MMOL/L (98-107); GLOMERULAR FILTRATION RATE > 60.0 (>60); GLUCOSE, FASTING 100 MG/DL (60-100); POTASSIUM SERUM 4.4 MMOL/L (3.5-5.1); SODIUM LEVEL 140 MMOL/L (136-145)
[2023-10-25] MEDS ORDERED: NS 1,000 ML IV ONE (10:45)
[2023-10-25] MEDS ORDERED: LOMOTIL 2.5MG/0.025MG TABLET PO ONE (10:45)
[2023-10-25 11:07] LABS: LIPASE 25 U/L (12-53)
[2023-10-25 11:09] LABS: ALBUMIN 3.6 G/DL (3.2-5.2); ALKALINE PHOSPHATASE 79 U/L (46-116); ALT/SGPT 17 U/L (7.0-40); AST/SGOT 12 U/L (<34); BILIRUBIN,DIRECT 0.3 MG/DL (<0.4); BILIRUBIN,TOTAL 0.9 MG/DL (0.3-1.2); TOTAL PROTEIN 6.5 G/DL (5.7-8.2)
[2023-10-25] MEDS: GASTROGRAFIN SOLUTION 30ML PO SCH (11:27)
[2023-10-25] MEDS ORDERED: ISOVUE-370 76% 100ML VIAL As Ordered ONE (12:28)
[2023-10-25 13:25] VITALS: BP 131/88; TEMP 97.6; O2SAT 100
[2023-10-25] MEDS ORDERED: DIPH2.5T15 PO (13:33)
== END 2023-10-25 13:45 | disposition home or self-care (01) ==
LOC: M ED 07:39
DX: K51.90 Ulcerative colitis, unspecified, without complications (principal); Z91.040 Latex allergy status; Z79.01 Long term (current) use of anticoagulants; Z79.83 Long term (current) use of bisphosphonates; Z79.899 Other long term (current) drug therapy
CPT/HCPCS: 36415; 74177; 80048; 80076; 83690; 85025; 87507; 96360; 96361; 99284; Q9963; Q9967

== ENCOUNTER → 2023-12-12 | Outpatient (CLI) | payer BC ==
[~2023-12-12] MED LIST changes: +DIPH2.5T15 PO; +PROHANCE 279.3MG/ML 15ML VIAL ONE
== END ==
LOC: M PLAIMG 08:21
PROVIDERS: ATTEND Internal Medicine Gastroenterology
DX: K83.1 Obstruction of bile duct (principal); K86.89 Other specified diseases of pancreas; K85.90 Acute pancreatitis without necrosis or infection, unspecified
CPT/HCPCS: 74183; A9576

== ENCOUNTER → 2023-12-20 | Outpatient (CLI) | payer BC ==
[~2023-12-20] MED LIST changes: -PROHANCE 279.3MG/ML 15ML VIAL ONE
== END ==
LOC: M RAD 09:59
PROVIDERS: ATTEND Nurse Practitioner Family
DX: R10.31 Right lower quadrant pain (principal); K76.0 Fatty (change of) liver, not elsewhere classified; K86.1 Other chronic pancreatitis

== ENCOUNTER → 2024-03-06 | Outpatient (REF) | payer BC ==
[~2024-03-06] MED LIST changes: +DIPH1TAB81 PO; -DIPH2.5T15 PO
== END ==
LOC: M LAB REF 16:29
PROVIDERS: ATTEND Physician Assistant Medical
DX: K86.1 Other chronic pancreatitis (principal)

== ENCOUNTER → 2024-03-29 | Outpatient (CLI) | payer BC ==
[2024-03-29 09:16] LABS: BLOOD UREA NITROGEN 17 MG/DL (9-23); GLOMERULAR FILTRATION RATE > 60.0 (>60)
== END ==
LOC: M LAB 08:06
PROVIDERS: ATTEND Nurse Practitioner Family
DX: K86.1 Other chronic pancreatitis (principal)

== ENCOUNTER → 2024-04-01 | Outpatient (CLI) | payer BC ==
[~2024-04-01] MED LIST changes: +GASTROGRAFIN SOLUTION 30ML ONE; +ISOVUE-370 76% 100ML VIAL ONE
== END ==
LOC: M PLAIMG 12:20
PROVIDERS: ATTEND Nurse Practitioner Family
DX: K86.1 Other chronic pancreatitis (principal)
CPT/HCPCS: 74178; Q9963; Q9967

== ENCOUNTER → 2024-05-01 | Outpatient (CLI) | payer BC ==
[~2024-05-01] MED LIST changes: -GASTROGRAFIN SOLUTION 30ML ONE; -ISOVUE-370 76% 100ML VIAL ONE; +ONDA-282 PO; -ONDA4TAB6 PO
== END ==
LOC: M RAD 08:21
PROVIDERS: ATTEND Internal Medicine Gastroenterology
DX: R18.8 Other ascites (principal); K83.1 Obstruction of bile duct; K86.89 Other specified diseases of pancreas; K85.90 Acute pancreatitis without necrosis or infection, unspecified; I82.90 Acute embolism and thrombosis of unspecified vein; K52.9 Noninfective gastroenteritis and colitis, unspecified

== ENCOUNTER → 2024-08-09 | Outpatient (CLI) | payer BC ==
[~2024-08-09] MED LIST changes: +PROHANCE 279.3MG/ML 15ML VIAL ONE
== END ==
LOC: M PLAIMG 07:47
PROVIDERS: ATTEND Internal Medicine Gastroenterology
DX: K83.1 Obstruction of bile duct (principal); R18.8 Other ascites; K52.9 Noninfective gastroenteritis and colitis, unspecified; K86.89 Other specified diseases of pancreas; K85.90 Acute pancreatitis without necrosis or infection, unspecified; I82.90 Acute embolism and thrombosis of unspecified vein; K86.2 Cyst of pancreas
CPT/HCPCS: 74183; A9576

== ENCOUNTER 2024-11-21 06:41 | Emergency (ER) | payer BC ==
[~2024-11-21] VITALS: Ht 185.4 cm; Wt 74.1 kg
[~2024-11-21 06:41] MED LIST changes: -PROHANCE 279.3MG/ML 15ML VIAL ONE
[2024-11-21] MEDS ORDERED: STEL45IN (08:33)
[2024-11-21] MEDS ORDERED: OMEP-173 (08:33)
[2024-11-21 08:36] LABS: BASO % 0.5 % (0.0-1.0); EOS # 0.1 10^3/uL (0.0-0.5); EOS % 1.4 % (0.0-3.0); HEMATOCRIT 43.3 % (42.0-52.0); HEMOGLOBIN 14.9 g/dl (13.5-17.5); LYMPH # 1.2 10^3/uL (1.5-5.0); LYMPH % 17.8 % (24.0-44.0); MEAN CORPUSCULAR HEMOGLOBIN 32.4 pg (27.0-33.0); MEAN CORPUSCULAR HGB CONC 34.4 g/dl (32.0-36.5); MEAN CORPUSCULAR VOLUME 94.1 fl (80.0-96.0); MONO # 0.6 10^3/uL (0.0-0.8); MONO % 9.5 % (2.0-8.0); NEUTROPHILS # 4.6 10^3/uL (1.5-8.5); NEUTROPHILS % 70.6 % (36.0-66.0); PLATELET COUNT, AUTOMATED 227 10^3/uL (150-450); WHITE BLOOD COUNT 6.5 10^3/uL (4.0-10.0)
[2024-11-21 09:01] LABS: LIPASE 136 U/L (12-53)
[2024-11-21 09:03] LABS: ALBUMIN 3.9 G/DL (3.2-5.2); ALKALINE PHOSPHATASE 103 U/L (40-129); ALT/SGPT 10 U/L (7.0-40); AMYLASE 189 U/L (30-118); AST/SGOT 18 U/L (<34); BILIRUBIN,DIRECT 0.5 MG/DL (<0.4); BLOOD UREA NITROGEN 17 MG/DL (9-23); CALCIUM LEVEL 9.7 MG/DL (8.5-10.1); CARBON DIOXIDE LEVEL 30 MMOL/L (20-31); CHLORIDE LEVEL 103 MMOL/L (98-107); CREATININE FOR GFR 0.72 MG/DL (0.70-1.30); GLOMERULAR FILTRATION RATE > 60.0 (>60); GLUCOSE, FASTING 105 MG/DL (60-100); POTASSIUM SERUM 4.4 MMOL/L (3.5-5.1); SODIUM LEVEL 140 MMOL/L (136-145); TOTAL PROTEIN 6.9 G/DL (5.7-8.2)
[2024-11-21 10:30] VITALS: BP 143/99; TEMP 97.3; O2SAT 100
== END 2024-11-21 10:37 | disposition home or self-care (01) ==
LOC: M ED 06:41
DX: R10.11 Right upper quadrant pain (principal); I10 Essential (primary) hypertension; Z79.899 Other long term (current) drug therapy; Z91.040 Latex allergy status

== ENCOUNTER → 2025-02-06 | Outpatient (REF) | payer BC ==
[~2025-02-06] MED LIST changes: +OMEP-173; +STEL45IN
== END ==
LOC: M LAB REF 07:10
PROVIDERS: ATTEND Internal Medicine Gastroenterology
DX: K52.9 Noninfective gastroenteritis and colitis, unspecified (principal); R18.8 Other ascites

== ENCOUNTER → 2025-03-21 | Outpatient (REF) | payer BC | LOC: M LAB REF 12:53 | PROVIDERS: ATTEND Nurse Practitioner Family | DX: K86.1 Other chronic pancreatitis (principal) ==

== ENCOUNTER → 2025-03-27 | Outpatient (REF) | payer BC | LOC: M LAB REF 17:24 | PROVIDERS: ATTEND Nurse Practitioner Family | DX: R10.9 Unspecified abdominal pain (principal) ==

== ENCOUNTER → 2025-03-28 | Outpatient (CLI) | payer BC ==
[~2025-03-28] MED LIST changes: +ISOVUE-370 76% 100ML VIAL As Ordered ONE
== END ==
LOC: M RAD 09:13
PROVIDERS: ATTEND Nurse Practitioner Family
DX: K51.519 Left sided colitis with unspecified complications (principal); K86.1 Other chronic pancreatitis; R91.1 Solitary pulmonary nodule; R93.3 Abnormal findings on diagnostic imaging of other parts of digestive tract
CPT/HCPCS: 74177; Q9967

== ENCOUNTER → 2025-05-26 | Outpatient (CLI) | payer BC ==
[~2025-05-26] MED LIST changes: -ISOVUE-370 76% 100ML VIAL As Ordered ONE
[2025-05-26 18:42] LABS: BASO # 0.1 10^3/uL (0.0-0.2); BASO % 0.9 % (0.0-1.0); EOS # 0.1 10^3/uL (0.0-0.5); EOS % 2.4 % (0.0-3.0); LYMPH # 1.3 10^3/uL (1.5-5.0); LYMPH % 23.0 % (24.0-44.0); MONO # 0.6 10^3/uL (0.0-0.8); MONO % 10.1 % (2.0-8.0); NEUTROPHILS # 3.5 10^3/uL (1.5-8.5); NEUTROPHILS % 63.4 % (36.0-66.0); PLATELET COUNT, AUTOMATED 223 10^3/uL (150-450)
[2025-05-26 18:45] LABS: C REACTIVE PROTEIN QUANTITATIV < 0.50 MG/DL (<1.0)
[2025-05-26 18:46] LABS: ALT/SGPT 68 U/L (7.0-40); AST/SGOT 42 U/L (<34); CALCIUM LEVEL 9.6 MG/DL (8.5-10.1); CARBON DIOXIDE LEVEL 31 MMOL/L (20-31); CHLORIDE LEVEL 100 MMOL/L (98-107); CREATININE FOR GFR 0.69 MG/DL (0.70-1.30); GLOMERULAR FILTRATION RATE > 90.0 (>60); POTASSIUM SERUM 4.2 MMOL/L (3.5-5.1); SODIUM LEVEL 139 MMOL/L (136-145)
[2025-05-26 18:47] LABS: FREE T4 1.38 NG/DL (0.89-1.76)
[2025-05-31 22:07] LABS: BORRELIA SPECIES DNA NOT DETECTED (NOT DETECT)
== END ==
LOC: M WUC 14:18
PROVIDERS: ATTEND Physician Assistant
DX: M79.10 Myalgia, unspecified site (principal)